=== PATIENT | male | born 1980 | race Caucasian/White ===

== ENCOUNTER 2019-11-15 01:31 | Emergency (ER) | payer OTHER ==
[~2019-11-15] VITALS: Ht 180.3 cm; Wt 125.2 kg
--- NOTE | 2019-11-15 01:44 | NUR ---
Patient to ER bed 5 to gown for evaluation. Side rails up. Report given to
[2019-11-15 01:45] VITALS: BP_SYST 150
--- NOTE | 2019-11-15 01:45 | NUR ---
ER Dr. HICKEY at bedside examining patient.
--- NOTE | 2019-11-15 01:50 | NUR ---
PT AAO AND AMBULATORY C/O SOB WHEN STARTING TO FALL ASLEEP. PT REPORTS THAT HE WAKES UP GASPING FOR AIR. SPO2 97%, V/S STABLE.
--- NOTE | 2019-11-15 02:34 | NUR ---
RT at bedside for ABG.
[2019-11-15 03:15] VITALS: BP_SYST 140
--- NOTE | 2019-11-15 03:15 | NUR ---
Patient given written and verbal discharge instructions and verbalizes understanding. ER MD discussed with patient the results and treatment provided. Patient in stable condition. ID arm band removed. No IV No Rx given. Patient educated on pain management and to follow up with PMD. Pain Scale 0/10.Pt Educated to follow up with PMD for CPAP, to return if condition worsens. Opportunity for questions provided and answered.
== END 2019-11-15 03:15 | disposition home or self-care (01) ==
LOC: SED 01:31
DX: G47.30 Sleep apnea, unspecified (principal); R06.02 Shortness of breath
CPT/HCPCS: 36600; 71045; 82803-TC; 93005; 99285